=== PATIENT | female | born 1980 | race African-American/Black ===

== ENCOUNTER 2016-12-21 09:24 | Emergency (ER) | payer BC, OTHER ==
[~2016-12-21] VITALS: Ht 170.2 cm; Wt 63.0 kg
[2016-12-21 09:25] VITALS: BP 133/89; PULSE 84; RESP 16; TEMP 97.6; O2SAT 100
--- NOTE | 2016-12-21 09:30 | NUR ---
Placed in room 6 . To gown for exam. Side rails up.
--- NOTE | 2016-12-21 09:39 | NUR ---
ER at bedside examining patient.
--- NOTE | 2016-12-21 09:49 | NUR ---
c/o vaginal spotting since last night. approx 6 weeks . AAOx4. no ditress. mild pelvic pain.
[2016-12-21 10:04] LABS: HEMATOCRIT 42.7 % (36-48); HEMOGLOBIN 14.4 g/dL (12.0-16.0); MEAN CORPUSCULAR HEMOGLOBIN 29 pg (27-31); MEAN CORPUSCULAR HGB CONC 34 % (32-36); MEAN CORPUSCULAR VOLUME 86 fL (79.0-98.0); PLATELET COUNT (AUTO) 192 K/uL (130-430); RED BLOOD CELL COUNT(AUTO) 4.95 MIL/uL (4.2-6.2); RED CELL DISTRIBUTION WIDTH 12.7 % (9.0-15.0); WHITE BLOOD COUNT (AUTO) 9.2 K/uL (4.8-10.8)
[2016-12-21 10:05] LABS: BILIRUBIN,URINE NEGATIVE (NEGATIVE); CLARITY/URINE CLEAR (CLEAR); COLOR,URINE YELLOW (YELLOW); GLUCOSE,URINE NEGATIVE (NEGATIVE); KETONES,URINE NEGATIVE (NEGATIVE); LEUKOCYTE ESTERASE ,URINE NEGATIVE (NEGATIVE); NITRITE, URINE NEGATIVE (NEGATIVE); PH,URINE 7.5 (5.0-8.0); PROTEIN URINE NEGATIVE (NEGATIVE); UROBILINOGEN,URINE 0.2 (0.2-1.0)
[2016-12-21 10:15] LABS: CALCIUM 9.4 mg/dL (8.4-11.0); CREATININE 0.77 mg/dL (0.55-1.30); POTASSIUM 3.5 mmol/L (3.5-5.1)
[2016-12-21 10:20] LABS: BLOOD, URINE TRACE (NEGATIVE)
--- NOTE | 2016-12-21 10:37 | NUR ---
transported to ultrasound.
[2016-12-21 10:48] LABS: BACTERIA,URINE FEW /HPF (None Seen); MUCUS,URINE None Seen /LPF (None Seen); RBC,URINE 0-3 /HPF (0-3); WBC,URINE 0-3 /HPF (0-3)
[2016-12-21 10:51] LABS: ATYPICAL LYMPHOCYTES % 0 % (0-0); BAND % (MANUAL) 0 % (0-6); BASOPHILS % (MANUAL) 0 % (0-2); EOSINOPHILS % (MANUAL) 1 % (0-7); LYMPHOCYTES % (MANUAL) 29 % (20-46); MONOCYTES % (MANUAL) 5 % (0-11)
--- NOTE | 2016-12-21 11:41 | NUR ---
Patient given written and verbal discharge instructions and verbalizes understanding. ER MD discussed with patient the results and treatment provided. Given copies of tests performed in ER. Patient in stable condition. ID arm band removed. Patient educated on pain management and to follow up with PMD. Pain Scale . Opportunity for questions provided and answered.
[2016-12-21 11:42] VITALS: BP 120/81; PULSE 80; RESP 16; TEMP 97.8; O2SAT 100
== END 2016-12-21 11:42 | disposition home or self-care (01) ==
LOC: SED 09:24
DX: O46.91 Antepartum hemorrhage, unspecified, first trimester (principal); O36.80X0 Pregnancy with inconclusive fetal viability, not applicable or unspecified; Z3A.01 Less than 8 weeks gestation of pregnancy
CPT/HCPCS: 36415; 76801; 76817; 80048; 81000-TC; 81025; 84702-TC; 85007; 85027; 86901; 99285

== ENCOUNTER 2020-08-02 21:19 | Emergency (ER) | payer BC, OTHER ==
[~2020-08-02] VITALS: Ht 170.2 cm; Wt 68.9 kg
[2020-08-02 21:25] VITALS: BP_SYST 142
--- NOTE | 2020-08-02 21:30 | NUR ---
Patient to ER bed 2 to gown for evaluation. Side rails up. Report given to Fe.
--- NOTE | 2020-08-02 21:35 | NUR ---
ER DR. VICENTE AT THE BEDSIDE EVALUATING PT
--- NOTE | 2020-08-02 21:40 | NUR ---
PT PRESENTS FROM HOME AFTER STUBBING HER RIGHT PINKY TOE ON THE COUCH. TOE HAS VISUAL DEFORMITY. CURRENTLY DENIES PAIN. AAOX4, V/S STABLE
--- NOTE | 2020-08-02 21:45 | NUR ---
ICE PACK PROVIDED TO PT
--- NOTE | 2020-08-02 21:52 | NUR ---
PORTABLE X-RAY AT THE BEDSIDE
[2020-08-02] MEDS ORDERED: LIDOCAINE 1% 10 MG/ML, 20 ML MDV INJ ONE (22:15)
[2020-08-02] MEDS ORDERED: LIDOCAINE 1%, 20 ML MDV 20 ML ONE (22:25)
--- NOTE | 2020-08-02 22:40 | NUR ---
DR. VICENTE AT THE BEDSIDE FOR REDUCTION OF THE RIGHT 5TH TOE, PT TOLERATED WELL
--- NOTE | 2020-08-02 22:49 | NUR ---
PORTABLE X-RAY AT THE BEDSIDE
[2020-08-02 23:12] VITALS: BP_SYST 135
--- NOTE | 2020-08-02 23:14 | NUR ---
Crutches properly fitted for patient by JONE. Patient given crutch walking instructions and demonstration. Is able to demonstrate adequate crutch walking technique with crutches provided. BOOT ALSO PROVIDED PER MD ORDER, FITTED AND PT ABLE TO AMBULATE.
--- NOTE | 2020-08-02 23:15 | NUR ---
Patient given written and verbal discharge instructions and verbalizes understanding. ER MD discussed with patient the results and treatment provided. Patient in stable condition. ID arm band removed. Rx of IBUPROFEN given. Patient educated on pain management and to follow up with PMD. Pain Scale 0/10. Opportunity for questions provided and answered. Medication side effect fact sheet provided.
== END 2020-08-02 23:12 | disposition home or self-care (01) ==
LOC: SED 21:19
DX: S92.511A Displaced fracture of proximal phalanx of right lesser toe(s), initial encounter for closed fracture (principal); W22.8XXA Striking against or struck by other objects, initial encounter; Y93.02 Activity, running; Y92.098 Other place in other non-institutional residence as the place of occurrence of the external cause; Y99.8 Other external cause status
CPT/HCPCS: 28515; 73660; 99284; J2001